=== PATIENT | male | born 1990 | race Two or more races ===

== ENCOUNTER 2024-09-06 12:52 | Outpatient (AMB) | payer MEDICAID, SELFPAY ==
--- NOTE | 2024-09-06 13:13 | PD.GSCLVISIT ---
[facility] - [facility] 09/06/24 13:15 Height 1.73 m Height Method Stated Weight 112.689 kg Weight Measurement Method Standing Scale BMI 37.6 BP 132/84 H Blood Pressure Source Automatic Cuff Blood Pressure Location Right Upper Arm Position Sitting Respiration 18 Pulse 89 Pulse Source Monitor Temp 98.2 F Temp Source Temporal Artery Scan Pulse Oximetry (%) 98 Oxygen Delivery Method Room Air Med/Allergies Allergies & Medications Allergies No Known Allergies Allergy (Verified 09/06/24 13:17) Medication Reconciliation phenazopyridine 200 mg tablet 200 mg PO TID PRN Dysuria #6 tabs 08/18/24 [Rx Confirmed 09/06/24] polyethylene glycol 3350 17 gram/dose oral powder (Miralax) 4 g PO QDAY Constipation #238 grams 08/18/24 [Rx Confirmed 09/06/24] cefuroxime axetil 250 mg tablet 250 mg PO BID uti 7 days #14 tabs 09/01/24 [Rx Confirmed 09/06/24] phenazopyridine 100 mg tablet (Pyridium) 100 mg PO TID PRN pain 6 doses #6 tabs 09/01/24 [Rx Confirmed 09/06/24] MA Intake Visit Data Collection New Patient or Established: Established Patient (seen at [facility] within 3 years) Seen by Clinical Staff ONLY (RN/MA): No Reason for Visit:: FOLLOW UP Pain Present Currently: No 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: No PCP or OBGYN visit in last 3 months: Yes Hx Now: No Do You Feel Safe at Home: Yes Authorities Contacted: N/A Smoking Status Smoking Status: Former smoker Are you interested in quitting?: No Would you like additional Smoking Cessation Counseling?: No Immunization / Flu Flu Vaccine in the Last 12 Months: No Flu Vaccine Exclusion Criteria: Refused by Patient Past Medical History Past Medical History CARDIAC: Negative Cardiac Disorders or Congestive Heart Failure RESPIRATORY: Positive Tuberculosis; Negative Chronic Obstructive Pulmonary Disease (COPD) or Asthma GASTROINTESTINAL: Positive Gastrointestinal Disorders, Diverticulitis, Diverticulosis and Obesity; Negative Pancreatitis or Ulcer GENITOURINARY: Negative Genitourinary Disorders or Renal Disease MUSCULOSKELETAL: Positive Carpal Tunnel Syndrome ENDOCRINE: Negative Endocrine Disorders, Diabetes Mellitus Type 1 or Diabetes Mellitus Type 2 HEMATOLOGIC: Negative Blood Disorders or Sickle Cell Disease OTHER HISTORY: Negative Autoimmune Disease, Falls, Blood Transfusion Reaction, Anesthesia Reactions, Organ Transplant, MRSA, Clostridium Difficile or Cancer Family History FAMILY HISTORY: Positive Family Surgery; Negative Family Psychiatric Problems, Family Respiratory Disorders, Family Cardiac Disorders, Family Gastrointestinal Problems, Family Cancer or Family Anesthesia Reaction Surgical History SURGICAL: Negative Organ Transplant Social History SMOKING STATUS: Smoking status: Former smoker SECOND HAND EXPOSURE: second hand exposure: No ALCOHOL: Alcohol Intake: Former ALCOHOL FREQUENCY: Alcohol Intake Frequency: holidays/special occasions only HOUSING: Housing: Apartment LIVES WITH: Lives With: Significant Other HPI HPI Narrative 34M with a history of diverticulitis for past 3 years here for planned follow up. I had seen pt during his most recent hospitalization during which imaging confirmed a colovesicular fistula; at the time we discussed delayed sigmoidectomy to hopefully avoid a colostomy however in the meantime pt has visited ER twice and feels the pain is too difficult to manage. He is having difficulty urinating and was diagnosed with UTI, is taking in only liquids as he had severe pain with solid food and is otherwise unable to complete any of his usual tasks. He has been taking cipro/flagyl and just received another rx with lower dosages PMH: No chronic conditions PSH: Carpal tunnel 2018 ALL: NKDA MEDS: stool softner; phenazopyridine FHX: mother hx of HTN Social: Occupation: [employer]- Autistic child; sometimes stressful; does not smoke tobacco, occasionally drinks ETOH, smokes marijuana 1-2 weekly. ROS Review of Systems Systems Reviewed: All systems reviewed, normal except as documented Objective/Exam General General Appearance: alert, cooperative and well groomed Resp Respiratory exam: Absent respiratory distress Results CT AP with gastrografin enema 08/25/24: Findings: Diffuse fatty infiltration throughout the liver Mild splenomegaly 13 cm Cholelithiasis, gallbladder wall appears thickened No pancreatic or adrenal mass No renal or ureteral calculi, hydronephrosis Aorta normal size No definite pericecal inflammatory change Severe sigmoid: Inflammatory change, likely acute diverticulitis There is air in the bladder consistent with colovesical fistula There is severe thickening of the urinary bladder wall IMPRESSION: Findings consistent with colovesical fistula Recommend gallbladder sonography follow-up to exclude acute cholecystitis Assessment & Plan Diagnosis / Problem List (1) 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 Given pt's degree of pain I offered surgery 09/15, which will allow for coordination with Urology for cystoscopy/ureteral stent placement and possible bladder repair. I explained that the plan for surgery will include this urologic evaluation to start followed by laparotomy, sigmoidectomy and colostomy as a colorectal anastomosis in the setting of severe inflammation confers a high risk of anastomotic leak. I explained risks of surgery including bleeding, infection, and injury to nearby structures including bladder/ureter which could require further surgeries such as ureteral repair and/or nephrostomy. Pt is understandably anxious about surgery but would like to proceed, all questions were answered but I encouraged him to write down any questions that come up before surgery so we can discuss then Plan: OR Fri09/15/24 for cystoscopy, ureteral stent placement (I spoke to Dr Irwin who kindly agreed), laparotomy, sigmoidectomy and colostomy Preop golytely and abx prep Office Procedures GNS Level of Care Nursing/Assessment Patient Status: Established Patient Nursing Assessment/Reassesment: Medication Reconciliation, Update PMH in EMR and Vital Signs Coordination of Care: Complex Care and Chronic Disease 1-5, Education Complex Pt/Fam, Consent,records obtained, informed consent and Staff clarify orders Established Patient Charge Established Patient Point Assignment: 90 Established Patient Point Charge: EP Level 3 (80-115) Patient Portal Questionaires Social History Living Situation History Housing: Apartment Tobacco History Smoking Status: Former smoker Second Hand Smoke Exposure: No Alcohol History Alcohol Intake: Former Alcohol Intake Frequency: holidays/special occasions only Substance Use History Substance Use: marijuana Domestic Abuse History Do You Feel Safe at Home: Yes Review of Systems Report any current symptoms Only answer those that you have currently: Past Medical History Past Medical History Have you ever been diagnosed with any of the following: Cardiology Problems Congestive Heart Failure: No Respiratory Problems Chronic Obstructive Pulmonary Disease (COPD): No Asthma: No Tuberculosis: Yes Stomache/Intestinal Problems Pancreatitis: No Diverticulitis: Yes Diverticulosis: Yes Ulcer: No Obesity: Yes Genital/Urinary Problems Renal Disease: No Musculoskeletal Problems Carpal Tunnel Syndrome: Yes Endocrine Problems Diabetes Mellitus Type 1: No Diabetes Mellitus Type 2: No Blood Problems Sickle Cell Disease: No Other Problems Autoimmune Disease: No Falls: No Blood Transfusion Reaction: No Anesthesia Reactions: No Organ Transplant: No MRSA: No Clostridium Difficile: No Cancer: No
[2024-09-06 13:15] VITALS: BP 132/84; PULSE 89; RESP 18; TEMP 36.8; O2SAT 98; BMI 37.6
== END 2024-09-06 13:32 | disposition home or self-care (01) ==
LOC: HODSRG 12:52
PROVIDERS: Supervising Provider Surgery; Visit Provider Surgery
DX: K63.2 Fistula of intestine (principal); K57.32 Diverticulitis of large intestine without perforation or abscess without bleeding
CPT/HCPCS: 99213; G0463

== ENCOUNTER 2024-09-22 14:23 | Outpatient (AMB) | payer MEDICAID, SELFPAY ==
--- NOTE | 2024-09-22 14:16 | ACNOTE_ITS ---
Allergies/Meds Allergies & Medications Allergies No Known Allergies Allergy (Verified 10/11/24 10:31) Medication Reconciliation ibuprofen 800 mg tablet 800 mg PO Q6H #30 tabs 09/21/24 [Rx Confirmed 10/11/24] oxycodone-acetaminophen 10 mg-325 mg tablet (Percocet) 1 tab PO Q4H PRN pain #60 tabs 09/21/24 [Rx Confirmed 10/11/24] simethicone 80 mg chewable tablet (Gas Relief (simethicone)) 80 mg PO TID PRN abdominal distention #90 tabs 09/21/24 [Rx Confirmed 10/11/24] MA Intake Visit Data Collection New Patient or Established: Established Patient (seen at [facility] within 3 years) Seen by Clinical Staff ONLY (RN/MA): No Pain Present Currently: No PCP or OBGYN visit in last 3 months: No Smoking Status Smoking Status: Never smoker For Televisit only Telemed Video/Phone Visit: Yes Verbal consent obtained for Telemed visit?: Yes Verbal Consent witness name: LELO Telemed Video/Phone visit w/Clinical Staff: 21-30 min Immunization / Flu Flu Vaccine in the Last 12 Months: No Flu Vaccine Exclusion Criteria: No Exclusion Criteria Past Medical History Past Medical History NEUROLOGIC: Negative Neurological Disorders or Seizures CARDIAC: Negative Cardiac Disorders or Congestive Heart Failure RESPIRATORY: Positive [facility] Negative Chronic Obstructive Pulmonary Disease (COPD), Asthma or Bronchitis GASTROINTESTINAL: 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), Diverticulitis, Diverticulosis and Obesity; Negative Pancreatitis or Ulcer GENITOURINARY: Negative Genitourinary Disorders or Renal Disease MUSCULOSKELETAL: Positive Carpal Tunnel Syndrome (right) ENDOCRINE: Negative Endocrine Disorders, Diabetes Mellitus Type 1 or Diabetes Mellitus Type 2 HEMATOLOGIC: Negative Blood Disorders or Sickle Cell Disease PSYCHO/SOCIAL: Negative Anxiety OTHER HISTORY: Positive Hospitalization (sepsis 3 weeks ago) and Chicken Pox; Negative Autoimmune Disease, Shingles, Falls, Blood Transfusions, Blood Transfusion Reaction, Anesthesia Reactions, Organ Transplant, MRSA, Clostridium Difficile or Cancer Family History FAMILY HISTORY: Positive Family Cardiac Disorders and Family Surgery; Negative Family Psychiatric Problems, Family Respiratory Disorders, Family Gastrointestinal Problems, Family Cancer or Family Anesthesia Reaction Surgical History SURGICAL: Negative Organ Transplant Social History SMOKING STATUS: Smoking status: Never smoker SECOND HAND EXPOSURE: second hand exposure: No ALCOHOL: Alcohol Intake: Current ALCOHOL FREQUENCY: Alcohol Intake Frequency: holidays/special occasions only HOUSING: Housing: Apartment LIVES WITH: Lives With: Family Patient Portal Questionaires Social History Living Situation History Housing: Apartment Tobacco History Smoking Status: Never smoker Second Hand Smoke Exposure: No Alcohol History Alcohol Intake: Current Alcohol Intake Frequency: holidays/special occasions only Substance Use History Substance Use: Marijuana Review of Systems Report any current symptoms Only answer those that you have currently: Past Medical History Past Medical History Have you ever been diagnosed with any of the following: Neurological Problems Seizures: No Cardiology Problems Congestive Heart Failure: No Respiratory Problems Chronic Obstructive Pulmonary Disease (COPD): No Asthma: No Bronchitis: No [facility]: [facility] Stomache/Intestinal Problems Pancreatitis: No Diverticulitis: Yes Diverticulosis: Yes Ulcer: No Obesity: Yes Genital/Urinary Problems Renal Disease: No Musculoskeletal Problems Carpal Tunnel Syndrome: Yes (right) Endocrine Problems Diabetes Mellitus Type 1: No Diabetes Mellitus Type 2: No Blood Problems Sickle Cell Disease: No Psychologic Problems Anxiety: No Other Problems Hospitalization: Yes (sepsis 3 weeks ago) Autoimmune Disease: No Shingles: No Falls: No Blood Transfusions: No Blood Transfusion Reaction: No Anesthesia Reactions: No Organ Transplant: No MRSA: No Chicken Pox: Yes Clostridium Difficile: No Cancer: No History of Present Illness HPI Narrative Kirit Villanueva is a 34-year-old male with a past medical history of diverticulitis and cystitis who presents to [facility] on 08/18/2024 for follow-up. Patient states that he was in usual state of health, without abdominal pain, straining with bowel movements, and no urinary symptoms. However, on Friday he ate dairy ice cream and states that he initially had diarrhea and now has constipation with associated abodminal pain. Since then abdominal pain has improved but strains to have bowel movements and stool content is nonbloody and small in caliber. Denies any urinary symptoms, such as dysuria, hematuria, or cloudy urine which he has had in the past but does endorse difficulty initiating stream. Suspect that this is due to mass-like thickening in the sigmoid colon seen on CT in 06/2024. Given that previous referral to gastroenterology was placed 06/2024 will send urgent referral to [facility] in [place]. Will follow-up on status of referral on next appointment. 09/22/2024: Patient had phone appointment today at [facility]. Patient with history of diverticuitis w/ colovesicular fistual. Patient was admitted in hospital on 09/15/[address] Figueroa, he underwent sigmoidectomy w/ end colostomy. Patient was discharged from hospital yesterday 09/21/24. He has upcoming appt with Dr. Figueroa on 10/04/24. Patient is in process of getting home care set up. He states that pain is managed through Ibuprofen and hydrocodone which he alternates. Patient is ambulating with a walker right now, producing stool through is colostomy bag. Patient denied fever, chills, nausea, vomiting and other associated symptoms. No other concerns at this point. Review of Systems Review of Systems Systems Reviewed: All systems reviewed, normal except as documented Objective/Exam Narrative Physical exam: Patient had Tele visit, AOx3, able to speak full sentences, denied any cough, breathing on room air. 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 Figueroa -Patient has upcoming appt with general surgeon on 10/04/24 Additional Assessment Attending note: I, Leo May MD, attest that I was physically present for the hernandez portions of the service completed via telehealth, and I reviewed and discussed the case with the resident and agree with the resident's plans of care as documented above. Patient discharged from hospital yesterday following sigmoidectomy with colostomy. Has follow-up appointment in 12 days with general surgery. Home care being established. Pain is controlled with current regimen. No acute issues to address today. Patient advised that if there is any issue with home care been established, to contact us. 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
== END 2024-09-22 15:33 | disposition home or self-care (01) ==
LOC: HODAHC 14:23
PROVIDERS: Supervising Provider Internal Medicine; Visit Provider Internal Medicine
DX: K63.2 Fistula of intestine (principal); K57.92 Diverticulitis of intestine, part unspecified, without perforation or abscess without bleeding; Z90.49 Acquired absence of other specified parts of digestive tract
CPT/HCPCS: 99212; G0463

== ENCOUNTER 2024-10-04 10:24 | Outpatient (AMB) | payer MEDICAID, SELFPAY ==
[2024-10-04 10:31] VITALS: BP 144/82; PULSE 63; RESP 19; TEMP 36.9; O2SAT 98; BMI 38.7
--- NOTE | 2024-10-04 10:31 | GSCOFFNT_ITS ---
Vital Signs - [facility] 10/04/24 10:31 Height 1.73 m Height Method Stated Weight 115.836 kg Weight Measurement Method Standing Scale BMI 38.7 BP 144/82 H Blood Pressure Source Automatic Cuff Blood Pressure Location Right Upper Arm Position Sitting Respiration 19 Pulse 63 Pulse Source Monitor Temp 98.4 F Temp Source Temporal Artery Scan Pulse Oximetry (%) 98 Oxygen Delivery Method Room Air Med/Allergies Allergies & Medications Allergies No Known Allergies Allergy (Verified 10/04/24 10:32) Medication Reconciliation ibuprofen 800 mg tablet 800 mg PO Q6H #30 tabs 09/21/24 [Rx Confirmed 10/04/24] oxycodone-acetaminophen 10 mg-325 mg tablet (Percocet) 1 tab PO Q4H PRN pain #60 tabs 09/21/24 [Rx Confirmed 10/04/24] simethicone 80 mg chewable tablet (Gas Relief (simethicone)) 80 mg PO TID PRN abdominal distention #90 tabs 09/21/24 [Rx Confirmed 10/04/24] MA Intake Visit Data Collection New Patient or Established: Established Patient (seen at [facility] within 3 years) Seen by Clinical Staff ONLY (RN/MA): No Reason for Visit:: POST OP FOLLOW UP Pain Present Currently: No Second Shift 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 Required: No PCP or OBGYN visit in last 3 months: Yes Hx Now: No Do You Feel Safe at Home: Yes Authorities Contacted: N/A Smoking Status Smoking Status: Never smoker Immunization / Flu Flu Vaccine in the Last 12 Months: No Flu Vaccine Exclusion Criteria: No Exclusion Criteria Past Medical History Past Medical History NEUROLOGIC: Negative Neurological Disorders or Seizures CARDIAC: Negative Cardiac Disorders or Congestive Heart Failure RESPIRATORY: Positive Tuberculosis (Positive test in [facility] was treated); Negative Chronic Obstructive Pulmonary Disease (COPD), Asthma or Bronchitis GASTROINTESTINAL: 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), Diverticulitis, Diverticulosis and Obesity; Negative Pancreatitis or Ulcer GENITOURINARY: Negative Genitourinary Disorders or Renal Disease MUSCULOSKELETAL: Positive Carpal Tunnel Syndrome (right) ENDOCRINE: Negative Endocrine Disorders, Diabetes Mellitus Type 1 or Diabetes Mellitus Type 2 HEMATOLOGIC: Negative Blood Disorders or Sickle Cell Disease PSYCHO/SOCIAL: Negative Anxiety OTHER HISTORY: Positive Hospitalization (sepsis 3 weeks ago) and Chicken Pox; Negative Autoimmune Disease, Shingles, Falls, Blood Transfusions, Blood Transfusion Reaction, Anesthesia Reactions, Organ Transplant, MRSA, Clostridium Difficile or Cancer Family History FAMILY HISTORY: Positive Family Cardiac Disorders and Family Surgery; Negative Family Psychiatric Problems, Family Respiratory Disorders, Family Gastrointestinal Problems, Family Cancer or Family Anesthesia Reaction Surgical History SURGICAL: Negative Organ Transplant Social History SMOKING STATUS: Smoking status: Never smoker SECOND HAND EXPOSURE: second hand exposure: No ALCOHOL: Alcohol Intake: Current ALCOHOL FREQUENCY: Alcohol Intake Frequency: holidays/special occasions only HOUSING: Housing: Apartment LIVES WITH: Lives With: Family HPI HPI Narrative 34M who presented with 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 Pt reports feeling well overall with little to no pain, he is no radha mckinley taking oxycodone and only occasionally taking ibuprofen. He is eating well and having appropriate colostomy output, and reports he is urinating well with no pain or irritation ROS Review of Systems Systems Reviewed: All systems reviewed, normal except as documented Objective/Exam General General Appearance: alert, cooperative and well groomed Resp Respiratory exam: Absent respiratory distress Abdominal Abdominal exam: Present soft and incision (midline incision with no surrounding erythema, no fluctuance or tenderness; at the superior aspect there is a superficial dehiscence approx 2cm in craniocaudal dimension; at the inferior aspect there is a smaller superficial dehiscence <1cm with minimal serosanguinous drainage); Absent distention or tenderness Assessment & Plan Diagnosis / Problem List (1) 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: Status: Acute Assessment & Plan: 34M s/p sigmoidectomy with end colostomy for diverticulitis with colovesicular fistula 09/15, recovering well Plan: F/u next week for wound eval Dr Moore confirmed he is able to follow up with pt for eventual robotic colostomy reversal Office Procedures GNS Level of Care Nursing/Assessment Patient Status: Established Patient Nursing Assessment/Reassesment: Medication Reconciliation, Update PMH in EMR and Vital Signs Coordination of Care: Complex Care and Chronic Disease 1-5, Education Complex Pt/Fam, Consent,records obtained, informed consent, Results/Orders obtained and Staff clarify orders Established Patient Charge Established Patient Point Assignment: 95 Established Patient Point Charge: EP Level 3 (80-115) Patient Portal Questionaires Social History Living Situation History Housing: Apartment Tobacco History Smoking Status: Never smoker Second Hand Smoke Exposure: No Alcohol History Alcohol Intake: Current Alcohol Intake Frequency: holidays/special occasions only Substance Use History Substance Use: Marijuana Domestic Abuse History Do You Feel Safe at Home: Yes Review of Systems Report any current symptoms Only answer those that you have currently: Past Medical History Past Medical History Have you ever been diagnosed with any of the following: Neurological Problems Seizures: No Cardiology Problems Congestive Heart Failure: No Respiratory Problems Chronic Obstructive Pulmonary Disease (COPD): No Asthma: No Bronchitis: No Tuberculosis: Yes (Positive test in [facility] was treated) Stomache/Intestinal Problems Pancreatitis: No Diverticulitis: Yes Diverticulosis: Yes Ulcer: No Obesity: Yes Genital/Urinary Problems Renal Disease: No Musculoskeletal Problems Carpal Tunnel Syndrome: Yes (right) Endocrine Problems Diabetes Mellitus Type 1: No Diabetes Mellitus Type 2: No Blood Problems Sickle Cell Disease: No Psychologic Problems Anxiety: No Other Problems Hospitalization: Yes (sepsis 3 weeks ago) Autoimmune Disease: No Shingles: No Falls: No Blood Transfusions: No Blood Transfusion Reaction: No Anesthesia Reactions: No Organ Transplant: No MRSA: No Chicken Pox: Yes Clostridium Difficile: No Cancer: No
== END 2024-10-04 11:00 | disposition home or self-care (01) ==
PROVIDERS: PCP Family Medicine; Referring Provider Family Medicine; Supervising Provider Surgery; Visit Provider Surgery
DX: Z48.815 Encounter for surgical aftercare following surgery on the digestive system (principal)
CPT/HCPCS: 99213; G0463

== ENCOUNTER 2024-10-11 10:17 | Outpatient (AMB) | payer MEDICAID, SELFPAY ==
[2024-10-11 10:29] VITALS: BP 144/81; PULSE 68; RESP 18; TEMP 36.4; O2SAT 97; BMI 38.4
--- NOTE | 2024-10-11 10:29 | PD.GSCLVISIT ---
Vital Signs - [facility] 10/11/24 10:29 Height 1.73 m Height Method Stated Weight 114.929 kg Weight Measurement Method Standing Scale BMI 38.4 BP 144/81 H Blood Pressure Source Automatic Cuff Blood Pressure Location Right Upper Arm Position Sitting Respiration 18 Pulse 68 Pulse Source Monitor Temp 97.6 F Temp Source Temporal Artery Scan Pulse Oximetry (%) 97 Oxygen Delivery Method Room Air Med/Allergies Allergies & Medications Allergies No Known Allergies Allergy (Verified 10/11/24 10:31) Medication Reconciliation ibuprofen 800 mg tablet 800 mg PO Q6H #30 tabs 09/21/24 [Rx Confirmed 10/11/24] oxycodone-acetaminophen 10 mg-325 mg tablet (Percocet) 1 tab PO Q4H PRN pain #60 tabs 09/21/24 [Rx Confirmed 10/11/24] simethicone 80 mg chewable tablet (Gas Relief (simethicone)) 80 mg PO TID PRN abdominal distention #90 tabs 09/21/24 [Rx Confirmed 10/11/24] MA Intake Visit Data Collection New Patient or Established: Established Patient (seen at [facility] within 3 years) Reason for Visit:: FOLLOW UP Pain Present Currently: Yes Pain Location: Abdomen Pain scale:: 2 Pain Scale Used: Lopez-Barry/Numerical General Duty Nurse Required: No PCP or OBGYN visit in last 3 months: Yes Hx Now: No Do You Feel Safe at Home: Yes Authorities Contacted: N/A Smoking Status Smoking Status: Never smoker Immunization / Flu Flu Vaccine in the Last 12 Months: No Flu Vaccine Exclusion Criteria: No Exclusion Criteria Past Medical History Past Medical History NEUROLOGIC: Negative Neurological Disorders or Seizures CARDIAC: Negative Cardiac Disorders or Congestive Heart Failure RESPIRATORY: Positive Tuberculosis (Positive test in [facility] was treated); Negative Chronic Obstructive Pulmonary Disease (COPD), Asthma or Bronchitis GASTROINTESTINAL: 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), Diverticulitis, Diverticulosis and Obesity; Negative Pancreatitis or Ulcer GENITOURINARY: Negative Genitourinary Disorders or Renal Disease MUSCULOSKELETAL: Positive Carpal Tunnel Syndrome (right) ENDOCRINE: Negative Endocrine Disorders, Diabetes Mellitus Type 1 or Diabetes Mellitus Type 2 HEMATOLOGIC: Negative Blood Disorders or Sickle Cell Disease PSYCHO/SOCIAL: Negative Anxiety OTHER HISTORY: Positive Hospitalization (sepsis 3 weeks ago) and Chicken Pox; Negative Autoimmune Disease, Shingles, Falls, Blood Transfusions, Blood Transfusion Reaction, Anesthesia Reactions, Organ Transplant, MRSA, Clostridium Difficile or Cancer Family History FAMILY HISTORY: Positive Family Cardiac Disorders and Family Surgery; Negative Family Psychiatric Problems, Family Respiratory Disorders, Family Gastrointestinal Problems, Family Cancer or Family Anesthesia Reaction Surgical History SURGICAL: Negative Organ Transplant Social History SMOKING STATUS: Smoking status: Never smoker SECOND HAND EXPOSURE: second hand exposure: No SUBSTANCE USE: Substance use type: does not use ALCOHOL: Alcohol Intake: Current ALCOHOL FREQUENCY: Alcohol Intake Frequency: holidays/special occasions only HOUSING: Housing: Apartment LIVES WITH: Lives With: Family Travel Risk Travel Hx Recent Travel: No HPI HPI Narrative 34M who presented with 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 Pt reports feeling well overall with little to no pain, he received his supplies yesterday and is comfortable caring for the stoma ROS Review of Systems Systems Reviewed: All systems reviewed, normal except as documented Objective/Exam General General Appearance: alert, cooperative and well groomed Resp Respiratory exam: Absent respiratory distress Abdominal Abdominal exam: Present soft and incision (midline incision with superficial dehiscenses at the superior and inferior aspects, no erythema, no fluctuance or drainage); Absent distention or tenderness Assessment & Plan Diagnosis / Problem List (1) 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: Status: Acute Assessment & Plan: 34M who presented with 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 s/p scheduled sigmoidectomy with end colostomy 09/15, recovering well overall Plan: F/u in 3 weeks Office Procedures GNS Level of Care Nursing/Assessment Patient Status: Established Patient Nursing Assessment/Reassesment: Medication Reconciliation, Update PMH in EMR and Vital Signs Coordination of Care: Complex Care and Chronic Disease 1-5, Education Complex Pt/Fam, Consent,records obtained, informed consent, Results/Orders obtained and Staff clarify orders Miscellaneous Interventions: Dressing placement or removal Established Patient Charge Established Patient Point Assignment: 115 Established Patient Point Charge: EP Level 3 (80-115) Patient Portal Questionaires Social History Living Situation History Housing: Apartment Tobacco History Smoking Status: Never smoker Second Hand Smoke Exposure: No Alcohol History Alcohol Intake: Current Alcohol Intake Frequency: holidays/special occasions only Substance Use History Substance Use: Marijuana Domestic Abuse History Do You Feel Safe at Home: Yes Review of Systems Report any current symptoms Only answer those that you have currently: Past Medical History Past Medical History Have you ever been diagnosed with any of the following: Neurological Problems Seizures: No Cardiology Problems Congestive Heart Failure: No Respiratory Problems Chronic Obstructive Pulmonary Disease (COPD): No Asthma: No Bronchitis: No [facility]: [facility] Stomache/Intestinal Problems Pancreatitis: No Diverticulitis: Yes Diverticulosis: Yes Ulcer: No Obesity: Yes Genital/Urinary Problems Renal Disease: No Musculoskeletal Problems Carpal Tunnel Syndrome: Yes (right) Endocrine Problems Diabetes Mellitus Type 1: No Diabetes Mellitus Type 2: No Blood Problems Sickle Cell Disease: No Psychologic Problems Anxiety: No Other Problems Hospitalization: Yes (sepsis 3 weeks ago) Autoimmune Disease: No Shingles: No Falls: No Blood Transfusions: No Blood Transfusion Reaction: No Anesthesia Reactions: No Organ Transplant: No MRSA: No Chicken Pox: Yes Clostridium Difficile: No Cancer: No
== END 2024-10-11 10:39 | disposition home or self-care (01) ==
LOC: HODSRG 10:17
PROVIDERS: PCP Family Medicine; Referring Provider Family Medicine; Supervising Provider Surgery; Visit Provider Surgery
DX: Z48.815 Encounter for surgical aftercare following surgery on the digestive system (principal)
CPT/HCPCS: 99213; G0463

== ENCOUNTER 2024-11-01 09:33 | Outpatient (AMB) | payer MEDICAID, SELFPAY ==
--- NOTE | 2024-11-01 09:42 | PD.GSCLVISIT ---
Vital Signs - [facility] 11/01/24 09:43 Height 1.73 m Height Method Stated Weight 115.779 kg Weight Measurement Method Standing Scale BMI 38.7 BP 150/87 H Blood Pressure Source Automatic Cuff Blood Pressure Location Left Upper Arm Position Sitting Respiration 18 Pulse 70 Pulse Source Monitor Temp 97.1 F Temp Source Temporal Artery Scan Pulse Oximetry (%) 99 Oxygen Delivery Method Room Air Med/Allergies Allergies & Medications Allergies No Known Allergies Allergy (Verified 11/01/24 09:43) Medication Reconciliation No Known Home Medications 11/01/24 [History Confirmed 11/01/24] MA Intake Visit Data Collection New Patient or Established: Established Patient (seen at [facility] within 3 years) Seen by Clinical Staff ONLY (RN/MA): No Reason for Visit:: 3 WEEK FISTULA F/U Pain Present Currently: No Pain scale:: 0 Pain Scale Used: Lopez-Barry/Numerical Software Support Specialist Required: No PCP or OBGYN visit in last 3 months: Yes Do You Feel Safe at Home: Yes Smoking Status Smoking Status: Never smoker Immunization / Flu Flu Vaccine in the Last 12 Months: No Flu Vaccine Exclusion Criteria: Refused by Patient Past Medical History Past Medical History NEUROLOGIC: Negative Neurological Disorders or Seizures CARDIAC: Negative Cardiac Disorders or Congestive Heart Failure RESPIRATORY: Positive 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), Diverticulitis, Diverticulosis and Obesity; Negative Pancreatitis or Ulcer GENITOURINARY: Negative Genitourinary Disorders or Renal Disease MUSCULOSKELETAL: Positive Carpal Tunnel Syndrome (right) ENDOCRINE: Negative Endocrine Disorders, Diabetes Mellitus Type 1 or Diabetes Mellitus Type 2 HEMATOLOGIC: Negative Blood Disorders or Sickle Cell Disease PSYCHO/SOCIAL: Negative Anxiety OTHER HISTORY: Positive Hospitalization (sepsis 3 weeks ago) and Chicken Pox; Negative Autoimmune Disease, Shingles, Falls, Blood Transfusions, Blood Transfusion Reaction, Anesthesia Reactions, Organ Transplant, MRSA, Clostridium Difficile or Cancer Family History FAMILY HISTORY: Positive Family Cardiac Disorders and Family Surgery; Negative Family Psychiatric Problems, Family Respiratory Disorders, Family Gastrointestinal Problems, Family Cancer or Family Anesthesia Reaction Surgical History SURGICAL: Negative Organ Transplant Social History SMOKING STATUS: Smoking status: Never smoker SECOND HAND EXPOSURE: second hand exposure: No ALCOHOL: Alcohol Intake: Current ALCOHOL FREQUENCY: Alcohol Intake Frequency: holidays/special occasions only HOUSING: Housing: Apartment LIVES WITH: Lives With: Family HPI HPI Narrative 34M who presented with 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 Pt reports feeling well overall with no pain, no nausea, tolerating diet and having regular colostomy output. No difficulty with urination and he has resumed some of his usual activities although is still avoiding heavy lifting. 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: Status: Acute Assessment & Plan: 34M who presented with 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 s/p scheduled sigmoidectomy with end colostomy 09/15, recovering well overall Plan: F/u in 2 mos Office Procedures GNS Level of Care Nursing/Assessment Patient Status: Established Patient Nursing Assessment/Reassesment: Medication Reconciliation, Update PMH in EMR and Vital Signs Coordination of Care: Complex Care and Chronic Disease 1-5, Education Complex Pt/Fam, 1 Ins Authorization and Staff clarify orders Established Patient Charge Established Patient Point Assignment: 100 Established Patient Point Charge: EP Level 3 (80-115) Patient Portal Questionaires Social History Living Situation History Housing: Apartment Tobacco History Smoking Status: Never smoker Second Hand Smoke Exposure: No Alcohol History Alcohol Intake: Current Alcohol Intake Frequency: holidays/special occasions only Substance Use History Substance Use: Marijuana Domestic Abuse History Do You Feel Safe at Home: Yes Review of Systems Report any current symptoms Only answer those that you have currently: Past Medical History Past Medical History Have you ever been diagnosed with any of the following: Neurological Problems Seizures: No Cardiology Problems Congestive Heart Failure: No Respiratory Problems Chronic Obstructive Pulmonary Disease (COPD): No Asthma: No Bronchitis: No Tuberculosis: Yes (Positive test in highschool was treated) Stomache/Intestinal Problems Pancreatitis: No Diverticulitis: Yes Diverticulosis: Yes Ulcer: No Obesity: Yes Genital/Urinary Problems Renal Disease: No Musculoskeletal Problems Carpal Tunnel Syndrome: Yes (right) Endocrine Problems Diabetes Mellitus Type 1: No Diabetes Mellitus Type 2: No Blood Problems Sickle Cell Disease: No Psychologic Problems Anxiety: No Other Problems Hospitalization: Yes (sepsis 3 weeks ago) Autoimmune Disease: No Shingles: No Falls: No Blood Transfusions: No Blood Transfusion Reaction: No Anesthesia Reactions: No Organ Transplant: No MRSA: No Chicken Pox: Yes Clostridium Difficile: No Cancer: No
[2024-11-01 09:43] VITALS: BP 150/87; PULSE 70; RESP 18; TEMP 36.2; O2SAT 99; BMI 38.7
== END 2024-11-01 09:54 | disposition home or self-care (01) ==
LOC: HODSRG 09:33
PROVIDERS: PCP Family Medicine; Referring Provider Family Medicine; Supervising Provider Surgery; Visit Provider Surgery
DX: Z48.815 Encounter for surgical aftercare following surgery on the digestive system (principal)
CPT/HCPCS: 99213; G0463

== ENCOUNTER 2024-12-05 13:06 | Emergency (ER) | payer MEDICAID, SELFPAY ==
[2024-12-05 13:07] VITALS: BMI 39.5
[2024-12-05 13:38] VITALS: BP 107/80; PULSE 89; RESP 20; TEMP 36.6; O2SAT 98
--- NOTE | 2024-12-05 13:55 | PD.EDWOUND ---
ED Wound/Laceration-RME/HPI General Chief Complaint: Wound/Laceration Stated Complaint: CUT TIP OF LEFT THUMB Time Seen by Provider: 12/05/24 13:40 Arrival date/time: 12/05/24 13:06 34-year-old male presents emerged department today said he was slicing vegetables today and injured his left thumb there are no other associated symptoms or aggravating factors no other modifying factors, patient denies taking medication before coming to ER today Limitations: no limitations Related Data Home Medications ?Medication ?Instructions ?Recorded ?Confirmed No Known Home Medications 11/01/24 11/01/24 Allergies Allergy/AdvReac Type Severity Reaction Status Date / Time No Known Allergies Allergy Verified 12/05/24 13:07 Review of Systems Review of Systems Systems Reviewed: All systems reviewed, normal except as documented Constitutional Constitutional: Reports system reviewed and no additional complaints, except as documented, Denies fever(s) and Denies headache(s) Eyes Eyes: Reports system reviewed and no additional complaints, except as documented and Denies blurry vision ENT Ears, Nose, Mouth, and Throat: Reports system reviewed and no additional complaints, except as documented, Denies headache(s), Denies nasal congestion and Denies nasal discharge Cardiovascular Cardiovascular: Reports system reviewed and no additional complaints, except as documented, Denies chest pain and Denies dyspnea Respiratory Respiratory: Reports system reviewed and no additional complaints, except as documented, Denies chest congestion, Denies cough and Denies dyspnea Gastrointestinal Gastrointestinal: Reports system reviewed and no additional complaints, except as documented and Denies abdominal pain Integumentary/Breasts Skin/Breast: Reports system reviewed and no additional complaints, except as documented, Denies rash and Reports wounds (Small avulsion distal end of left thumb) Neurologic Neurologic: Reports system reviewed and no additional complaints, except as documented, Reports as per HPI and Denies headache(s) Past Medical History Past Medical History NEUROLOGIC: Negative Neurological Disorders or Seizures CARDIAC: Negative Cardiac Disorders or Congestive Heart Failure RESPIRATORY: Positive Tuberculosis (Positive test in highschool was treated); Negative Chronic Obstructive Pulmonary Disease (COPD), Asthma or Bronchitis GASTROINTESTINAL: 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), Diverticulitis, Diverticulosis and Obesity; Negative Pancreatitis or Ulcer GENITOURINARY: Negative Genitourinary Disorders or Renal Disease MUSCULOSKELETAL: Positive Carpal Tunnel Syndrome (right); Negative Musculoskeletal Disorders ENDOCRINE: Negative Endocrine Disorders, Diabetes Mellitus Type 1 or Diabetes Mellitus Type 2 HEMATOLOGIC: Negative Blood Disorders or Sickle Cell Disease PSYCHO/SOCIAL: Negative Anxiety OTHER HISTORY: Positive Hospitalization (sepsis 3 weeks ago) and Chicken Pox; Negative Autoimmune Disease, Shingles, Falls, Blood Transfusions, Blood Transfusion Reaction, Anesthesia Reactions, Organ Transplant, MRSA, Clostridium Difficile or Cancer Family History FAMILY HISTORY: Positive Family Cardiac Disorders and Family Surgery; Negative Family Psychiatric Problems, Family Respiratory Disorders, Family Gastrointestinal Problems, Family Cancer or Family Anesthesia Reaction Surgical History SURGICAL: Negative Neurologic Surgery, Vasectomy or Organ Transplant Social History SMOKING STATUS: Former smoker SECOND HAND EXPOSURE: No SUBSTANCE USE: does not use ED Exam General Limitations: Present no limitations General appearance: Present alert and in no apparent distress Head Head exam: Present atraumatic Eye Eye exam: Present normal appearance, PERRL and EOMI ENT ENT exam: Present normal exam, normal oropharynx and mucous membranes moist Neck Neck exam: Present normal inspection, full ROM and trachea midline Chest Chest inspection: Present normal inspection and symmetric chest wall rise Respiratory Respiratory exam: Present normal lung sounds bilaterally Cardiovascular Cardiovascular exam: Present regular rate, normal rhythm and normal heart sounds Abdominal Exam Abdominal exam: Present soft and normal bowel sounds Extremities Exam Extremities exam: Present full ROM, tenderness, normal capillary refill and other (Small avulsion distal end of left thumb); Absent joint swelling Back Exam Back exam: Present normal inspection and full ROM Neurological Exam Neurological exam: Present alert, oriented X3, CN II-XII intact, normal gait and reflexes normal; Absent motor sensory deficit Psychiatric Psychiatric exam: Present normal affect and normal mood Skin Skin exam: Present warm, dry and other (Small avulsion distal end of left thumb) Course Quality Measures none Orders Category Date Time Status Wound Care NOW Care 12/05/24 13:42 Active Tet,Diphth,Pertuss(Acell)-Tdap [Boostrix Vacc] Med 12/05/24 13:50 Discontinued 0.5 ml IMI .ONCE ONE Vital Signs Vital signs: Vital Signs Temperature 97.8 F 12/05/24 13:38 Pulse Rate 89 12/05/24 13:38 Respiratory Rate 20 12/05/24 13:38 Blood Pressure 107/80 12/05/24 13:38 Pulse Oximetry (%) 98 12/05/24 13:38 Oxygen Delivery Method Room Air 12/05/24 13:38 O2 saturation 98% room air wnl Wound / Laceration MDM Narrative MDM Narrative:: 34-year-old male presents emergency department today said he was slicing vegetables today and injured his left thumb there are no other associated symptoms or aggravating factors no other modifying factors, patient denies taking medication before coming to ER today On exam patient is skin avulsion distal aspect left thumb tetanus updated dressing applied no active bleeding at time of discharge Patient discharged home in no distress to follow-up with primary care doctor in the next 24 to 48 hours and for any worsening symptoms to return to the ER immediately Patient data External records reviewed:: [facility] previous records Clinical information provided by:: patient Social determinants that could affect healthcare access:: none Patient has the following chronic illnesses:: None How is presenting disease/condition affected by chronic disease/condition?: no chronic disease Evaluation data The following diagnostics were reviewed and interpreted by me:: other (specify) (N/A) Lab and/or radiology exams considered but not ordered:: Consider not ordered Interpretation Summary: N/A Medications / Prescriptions Medications or Prescriptions considered but not ordered:: Given Medication administrations:: Medication Administration History Discontinued Medications Diphtheria/Tetanus/Acell Pertussis (Diphth,Pertuss(Acell),Tet Vac 0.5 Ml Vial) 0.5 ml IMi .ONCE ONE Stop: 12/05/24 13:51 Last Admin: 12/05/24 14:15 Dose: 0.5 ml Documented By: ER Given Consultations Consultation(s) initiated? (list below): No Diagnosis Wound Differential Diagnosis: laceration, abrasion and avulsion of skin Most likely diagnosis given after review of the tests above:: Avulsion skin Admission Indicated Admission indicated?: not indicated Admission Request Was there a request for admission?: No Disposition Plan Disposition Plan: Discharge Discharge Attestation Discharge Attestation: The patient and all family members were given an opportunity to ask questions and understood the discharge instructions. Discharge instructions specifically effects, indications for sooner follow up or return to the emergency department, and the expected course of current diagnosis. Patient condition: Stable Discharge Plan Plan Patient Disposition: HOME (Self Care) Disposition Comment: Stable Prescriptions/Referrals Prescriptions/Med Rec: No Action No Known Home Medications Problem List Clinical Impression: Avulsion of finger tip Patient/Caregiver Discharge Instructions Education Materials: ED Skin Avulsion Additional Instructions: Please follow up with your primary care doctor in the next 24-48hrs for any worsening symptoms return here immediately Print Language: Marshallese Stand Alone Forms: Clarisa Award Info., Work/School Release, Patient Portal Info Letter Vaccines Vaccines Given During Stay: TDaP PA/CUT ROLL MACHINE OPERATOR Supervising Physician PA/CUT ROLL MACHINE OPERATOR Supervising Physician: Dr. Pleitez
[2024-12-05] MEDS: DIPHTH,PERTUSS(ACELL),TET VAC 0.5 ML VIAL IMi (14:15)
== END 2024-12-05 14:24 | disposition home or self-care (01) ==
PROVIDERS: Emergency Provider Emergency Medicine; PCP Family Medicine
DX: S61.012A Laceration without foreign body of left thumb without damage to nail, initial encounter (principal); W26.0XXA Contact with knife, initial encounter; Y93.G1 Activity, food preparation and clean up; Z23 Encounter for immunization
CPT/HCPCS: 90471; 90715; 99282

== ENCOUNTER 2024-12-13 09:51 | Outpatient (AMB) | payer MEDICAID, SELFPAY ==
[2024-12-13 10:07] VITALS: BP 142/86; PULSE 56; RESP 19; TEMP 36.6; O2SAT 98; BMI 42.0
--- NOTE | 2024-12-13 10:07 | GSCOFFNT_ITS ---
Vital Signs - [facility] 12/13/24 10:07 Height 1.73 m Height Method Stated Weight 125.815 kg Weight Measurement Method Standing Scale BMI 42.0 BP 142/86 H Blood Pressure Source Automatic Cuff Blood Pressure Location Left Upper Arm Position Sitting Respiration 19 Pulse 56 L Pulse Source Monitor Temp 97.8 F Temp Source Temporal Artery Scan Pulse Oximetry (%) 98 Oxygen Delivery Method Room Air Med/Allergies Allergies & Medications Allergies No Known Allergies Allergy (Verified 12/13/24 10:08) Medication Reconciliation No Known Home Medications 11/01/24 [History Confirmed 12/13/24] MA Intake Visit Data Collection New Patient or Established: Established Patient (seen at [facility] within 3 years) Seen by Clinical Staff ONLY (RN/MA): No Reason for Visit:: FOLLOW UP Pain Present Currently: No City Clerk Required: No PCP or OBGYN visit in last 3 months: Yes Hx Now: No Do You Feel Safe at Home: Yes Authorities Contacted: N/A Smoking Status Smoking Status: Former smoker Immunization / Flu Flu Vaccine in the Last 12 Months: No Flu Vaccine Exclusion Criteria: No Exclusion Criteria Past Medical History Past Medical History NEUROLOGIC: Negative Neurological Disorders or Seizures CARDIAC: Negative Cardiac Disorders or Congestive Heart Failure RESPIRATORY: Positive [facility] Negative Chronic Obstructive Pulmonary Disease (COPD), Asthma or Bronchitis GASTROINTESTINAL: 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), Diverticulitis, Diverticulosis and Obesity; Negative Pancreatitis or Ulcer GENITOURINARY: Negative Genitourinary Disorders or Renal Disease MUSCULOSKELETAL: Positive Carpal Tunnel Syndrome (right) ENDOCRINE: Negative Endocrine Disorders, Diabetes Mellitus Type 1 or Diabetes Mellitus Type 2 HEMATOLOGIC: Negative Blood Disorders or Sickle Cell Disease PSYCHO/SOCIAL: Negative Anxiety OTHER HISTORY: Positive Hospitalization (sepsis 3 weeks ago) and Chicken Pox; Negative Autoimmune Disease, Shingles, Falls, Blood Transfusions, Blood Transfusion Reaction, Anesthesia Reactions, Organ Transplant, MRSA, Clostridium Difficile or Cancer Family History FAMILY HISTORY: Positive Family Cardiac Disorders and Family Surgery; Negative Family Psychiatric Problems, Family Respiratory Disorders, Family Gastrointestinal Problems, Family Cancer or Family Anesthesia Reaction Surgical History SURGICAL: Negative Organ Transplant Social History SMOKING STATUS: Smoking status: Former smoker SECOND HAND EXPOSURE: second hand exposure: No ALCOHOL: Alcohol Intake: Current ALCOHOL FREQUENCY: Alcohol Intake Frequency: holidays/special occasions only HOUSING: Housing: Apartment LIVES WITH: Lives With: Family HPI HPI Narrative 34M who presented with 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 Pt reports feeling well overall with no pain, no nausea, he is eating well and not having any difficulty with his colostomy. 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 Pt will follow up with Dr Moore for minimally invasive reversal, is encouraged to reach out to me with any concerns or questions in the meantime Office Procedures GNS Level of Care Nursing/Assessment Patient Status: Established Patient Nursing Assessment/Reassesment: Medication Reconciliation, Update PMH in EMR and Vital Signs Coordination of Care: Complex Care and Chronic Disease 1-5, Consent,records obtained, informed consent, Education Simp Pt/Fam, Results/Orders obtained and Staff clarify orders Established Patient Charge Established Patient Point Assignment: 90 Established Patient Point Charge: EP Level 3 (80-115) Patient Portal Questionaires Social History Living Situation History Housing: Apartment Tobacco History Smoking Status: Former smoker Second Hand Smoke Exposure: No Alcohol History Alcohol Intake: Current Alcohol Intake Frequency: holidays/special occasions only Substance Use History Substance Use: Marijuana Domestic Abuse History Do You Feel Safe at Home: Yes Review of Systems Report any current symptoms Only answer those that you have currently: Past Medical History Past Medical History Have you ever been diagnosed with any of the following: Neurological Problems Seizures: No Cardiology Problems Congestive Heart Failure: No Respiratory Problems Chronic Obstructive Pulmonary Disease (COPD): No Asthma: No Bronchitis: No [facility]: Yes ([facility] Stomache/Intestinal Problems Pancreatitis: No Diverticulitis: Yes Diverticulosis: Yes Ulcer: No Obesity: Yes Genital/Urinary Problems Renal Disease: No Musculoskeletal Problems Carpal Tunnel Syndrome: Yes (right) Endocrine Problems Diabetes Mellitus Type 1: No Diabetes Mellitus Type 2: No Blood Problems Sickle Cell Disease: No Psychologic Problems Anxiety: No Other Problems Hospitalization: Yes (sepsis 3 weeks ago) Autoimmune Disease: No Shingles: No Falls: No Blood Transfusions: No Blood Transfusion Reaction: No Anesthesia Reactions: No Organ Transplant: No MRSA: No Chicken Pox: Yes Clostridium Difficile: No Cancer: No
== END 2024-12-13 10:20 | disposition home or self-care (01) ==
LOC: HODSRG 09:51
PROVIDERS: PCP Family Medicine; Referring Provider Family Medicine; Supervising Provider Surgery; Visit Provider Surgery
DX: Z48.815 Encounter for surgical aftercare following surgery on the digestive system (principal)
CPT/HCPCS: 99213; G0463